=== PATIENT | male | born 1965 | race Caucasian/White ===

== ENCOUNTER 2016-04-19 09:40 | Emergency (ER) | payer SELFPAY | END 2016-04-19 12:00 | disposition home or self-care (01) | LOC: FER 09:40 | DX: S39.012A Strain of muscle, fascia and tendon of lower back, initial encounter (principal); W17.89XA Other fall from one level to another, initial encounter; Y92.69 Other specified industrial and construction area as the place of occurrence of the external cause; Y99.0 Civilian activity done for income or pay | CPT/HCPCS: 72100; J1100 ==

== ENCOUNTER 2016-05-10 11:48 | Emergency (ER) | payer OTHER | END 2016-05-10 12:49 | disposition home or self-care (01) | LOC: FER 11:48 | DX: M54.41 Lumbago with sciatica, right side (principal); R03.0 Elevated blood-pressure reading, without diagnosis of hypertension; Z87.828 Personal history of other (healed) physical injury and trauma; Z87.891 Personal history of nicotine dependence | CPT/HCPCS: J1100; J1885 ==

== ENCOUNTER 2020-03-29 19:58 | Inpatient (IN) | payer OTHER ==
[~2020-03-29 19:58] MED LIST: CYCLOBENZAPRINE10 MG PO; LIPITOR20 MG PO; METFORMIN HCL500 MG PO; PRINIVIL10 MG PO; VOLTAREN **OUT50 MG PO
[2020-03-29 20:58] LABS: BASOPHIL 0.7 % (0-2); EOSINOPHIL 3.3 % (0-5); HCT 43.9 % (42.0-52.0); MCH 29.2 pg (25.0-31.0); MCHC 31.9 g/dL (32.0-36.0); MCV 91.6 fL (78.0-100.0); MONOCYTE 9.7 % (0-12); MPV 9.6 fL (6.0-9.5); NEUTROPHIL 69.9 % (41-80); NRBC 0; PLT 281 K/uL (150-400); RBC 4.79 M/uL (4.70-6.00); WBC 9.5 K/uL (4.0-10.5)
[2020-03-29 21:05] LABS: INR 1.34 (0.9-1.2); PROTHROMBIN TIME 15.7 SECONDS (11.4-13.6); PTT 31.4 SECONDS (22.2-34.7)
[2020-03-29 21:18] LABS: ALBUMIN 3.2 g/dL (3.4-5.0); BILIRUBIN - TOTAL 1.1 mg/dL (0.2-1.0); CREATININE 1.12 mg/dL (0.67-1.17); GLOBULIN (CALCULATION) 3.5 g/dL; POTASSIUM 4.8 mmol/L (3.5-5.1); TOTAL PROTEIN 6.7 g/dL (6.4-8.2)
[2020-03-30] MEDS ORDERED: TOPROL XL 25MG25 MG PO (04:31)
[2020-03-30] MEDS ORDERED: ASPIRIN325 M1 PO (04:32)
[2020-03-30] MEDS ORDERED: VALSARTAN160 MG PO (04:34)
[2020-03-30] MEDS ORDERED: DEMADEX20 MG PO (04:38)
[2020-03-30] MEDS ORDERED: PROTONIX 40MG T40 MG PO (04:40)
[2020-03-30 08:13] LABS: BUN/CREAT RATIO (CALC) 22.8 RATIO; CREATININE 1.14 mg/dL (0.67-1.17); MAGNESIUM 1.7 mg/dL (1.8-2.4); POTASSIUM 4.4 mmol/L (3.5-5.1)
[2020-03-31 06:26] LABS: BASOPHIL 0.8 % (0-2); EOSINOPHIL 3.3 % (0-5); HGB 13.6 g/dl (13.2-18.0); MCH 29.2 pg (25.0-31.0); MCHC 32.4 g/dL (32.0-36.0); MCV 90.1 fL (78.0-100.0); MONOCYTE 9.3 % (0-12); MPV 9.6 fL (6.0-9.5); NEUTROPHIL 73.3 % (41-80); NRBC 0; PLT 252 K/uL (150-400); RBC 4.66 M/uL (4.70-6.00); WBC 8.7 K/uL (4.0-10.5)
[2020-03-31 06:51] LABS: CREATININE 1.29 mg/dL (0.67-1.17); MAGNESIUM 1.5 mg/dL (1.8-2.4); POTASSIUM 4.3 mmol/L (3.5-5.1)
[2020-03-31 17:43] LABS: BILIRUBIN 1+ mg/dL (NEGATIVE); BLOOD NEGATIVE Ery/uL (NEGATIVE); CLARITY CLEAR (CLEAR); COLOR YELLOW (YELLOW); GLUCOSE (U) NORMAL (NORMAL); LEUKOCYTES NEGATIVE Leu/uL (NEGATIVE); NITRITE NEGATIVE (NEGATIVE); PROTEIN TRACE (LOW) mg/dL (NEGATIVE); SPECIFIC GRAVITY 1.025 (1.001-1.030)
[2020-03-31 17:48] LABS: SQUAMOUS EPITHELIAL CELLS RARE; URINARY RBC RARE
[2020-03-31] MEDS ORDERED: VALSARTAN80 MG PO (18:16)
[2020-03-31] MEDS ORDERED: TOPROL XL 25MG25 MG PO (18:16)
[2020-03-31] MEDS ORDERED: METFORMIN HCL500 MG PO (18:16)
[2020-03-31] MEDS ORDERED: DEMADEX20 MG PO (18:16)
[2020-03-31] MEDS ORDERED: PROTONIX 40MG T40 MG PO (18:16)
[2020-03-31] MEDS ORDERED: LIPITOR20 MG PO (18:16)
[2020-03-31] MEDS ORDERED: POTASSIUM CHLO10 ME2 PO (18:16)
== END 2020-03-31 19:01 | disposition home or self-care (01) | DRG 282 ==
LOC: FER 19:58 → FTCU 03-30 02:51
PROVIDERS: Allergy & Immunology; Emergency Medicine Emergency Medical Services; ADMIT Internal Medicine
DX: I11.0 Hypertensive heart disease with heart failure (principal); I21.A1 Myocardial infarction type 2; F41.9 Anxiety disorder, unspecified; M19.90 Unspecified osteoarthritis, unspecified site; E11.9 Type 2 diabetes mellitus without complications; G47.33 Obstructive sleep apnea (adult) (pediatric); E78.5 Hyperlipidemia, unspecified; Z20.822 Contact with and (suspected) exposure to COVID-19; G89.29 Other chronic pain; I42.8 Other cardiomyopathies; M54.9 Dorsalgia, unspecified; Z87.891 Personal history of nicotine dependence; I50.33 Acute on chronic diastolic (congestive) heart failure; Z91.14 Patient's other noncompliance with medication regimen
CPT/HCPCS: 36415; 71045; 80048; 80053; 81001; 82962; 83735; 83880; 84145; 84484; 85025; 85610; 85730; 93005; J1650; J1940; J3475; U0002

== ENCOUNTER 2021-03-30 14:47 | Emergency (ER) | payer OTHER ==
[~2021-03-30 14:47] MED LIST changes: +ASPIRIN325 M1 PO; +AUGMENTIN 875-1 EACH PO; +DEMADEX20 MG PO; +MUPIROCIN 2%22 GM TOP; +NORCO 5-325 TA1 EACH PO; +POTASSIUM CHLO10 ME2 PO; +PROTONIX 40MG T40 MG PO; +TOPROL XL 25MG25 MG PO; +VALSARTAN160 MG PO; +VALSARTAN80 MG PO; +VIBRAMYCIN100 MG PO
[2021-03-30 15:25] LABS: BASOPHIL 0.8 % (0-2); EOSINOPHIL 0.6 % (0-5); HCT 45.9 % (42.0-52.0); HGB 14.7 g/dl (13.2-18.0); MCH 25.4 pg (25.0-31.0); MCV 79.4 fL (78.0-100.0); MONOCYTE 9.3 % (0-12); MPV 10.3 fL (6.0-9.5); NRBC 0; PLT 278 K/uL (150-400); RBC 5.78 M/uL (4.70-6.00); RDW 20.7 % (11.5-14.0); WBC 9.5 K/uL (4.0-10.5)
[2021-03-30 15:37] LABS: INR 1.46 (0.9-1.2); PTT 32.1 SECONDS (24.4-34.7)
[2021-03-30 15:53] LABS: ALBUMIN 3.3 g/dL (3.4-5.0); BILIRUBIN - TOTAL 1.9 mg/dL (0.2-1.0); BUN/CREAT RATIO (CALC) 19.2 RATIO; CREATININE 1.2 mg/dL (0.67-1.17); FT4 (FREE T4) 1.1 ng/dL (0.76-1.46); GLOBULIN (CALCULATION) 4.6 g/dL; MAGNESIUM 1.5 mg/dL (1.8-2.4); POTASSIUM 3.4 mmol/L (3.5-5.1); TOTAL PROTEIN 7.9 g/dL (6.4-8.2)
[2021-03-30 15:56] LABS: LACTIC ACID 1.9 mmol/L (0.4-1.9)
[2021-03-30 17:49] LABS: BILIRUBIN NEGATIVE (NEGATIVE); BLOOD NEGATIVE Ery/uL (NEGATIVE); CLARITY CLEAR (CLEAR); COLOR YELLOW (YELLOW); GLUCOSE (U) NORMAL (NORMAL); LEUKOCYTES NEGATIVE Leu/uL (NEGATIVE); NITRITE NEGATIVE (NEGATIVE); PROTEIN TRACE (LOW) mg/dL (NEGATIVE); pH 6.5 (5.0-9.0)
[2021-03-30 17:55] LABS: AMPHETAMINES NEGATIVE (NEGATIVE); BARBITURATES NEGATIVE (NEGATIVE); ECSTASY (MDMA) NEGATIVE (NEGATIVE); MARIJUANA (THC) NEGATIVE (NEGATIVE); METHADONE NEGATIVE (NEGATIVE); OPIATES NEGATIVE (NEGATIVE); OXYCODONE NEGATIVE (NEGATIVE)
[2021-03-31 04:27] LABS: BASOPHIL 1.1 % (0-2); EOSINOPHIL 1.6 % (0-5); HCT 45.3 % (42.0-52.0); HGB 14.5 g/dl (13.2-18.0); LYMPHOCYTE 20.2 % (15-48); MCH 25.3 pg (25.0-31.0); MCV 79.2 fL (78.0-100.0); MONOCYTE 9.9 % (0-12); MPV 10.3 fL (6.0-9.5); NEUTROPHIL 66.9 % (41-80); NRBC 0; PLT 255 K/uL (150-400); RBC 5.72 M/uL (4.70-6.00); RDW 20.8 % (11.5-14.0); WBC 7.1 K/uL (4.0-10.5)
[2021-03-31 04:38] LABS: BUN/CREAT RATIO (CALC) 18.4 RATIO; CREATININE 1.36 mg/dL (0.67-1.17); POTASSIUM 4.1 mmol/L (3.5-5.1)
== END 2021-03-31 10:00 | disposition other institution (70) ==
LOC: FER 14:47
PROVIDERS: Emergency Medicine; Internal Medicine
DX: I11.0 Hypertensive heart disease with heart failure (principal); I50.9 Heart failure, unspecified; R07.89 Other chest pain; R00.2 Palpitations; E11.9 Type 2 diabetes mellitus without complications; Z95.0 Presence of cardiac pacemaker; Z91.19 Patient's noncompliance with other medical treatment and regimen; Z91.041 Radiographic dye allergy status; Z20.822 Contact with and (suspected) exposure to COVID-19
CPT/HCPCS: 36415; 71045; 80048; 80053; 80305; 81003; 82550; 83605; 83615; 83735; 83880; 84439; 84443; 84484; 85025; 85610; 85730; 93005; J1940; J3475; U0002

== ENCOUNTER 2021-04-19 08:42 | Emergency (ER) | payer OTHER ==
[2021-04-19 10:27] LABS: BASOPHIL 0.2 % (0-2); EOSINOPHIL 0 % (0-5); HCT 44.9 % (42.0-52.0); HGB 14.2 g/dl (13.2-18.0); LYMPHOCYTE 3.5 % (15-48); MCH 25.1 pg (25.0-31.0); MCHC 31.6 g/dL (32.0-36.0); MCV 79.5 fL (78.0-100.0); MONOCYTE 8.8 % (0-12); MPV 10.1 fL (6.0-9.5); NEUTROPHIL 86.2 % (41-80); NRBC 0.2; PLT 292 K/uL (150-400); RBC 5.65 M/uL (4.70-6.00); RDW 20.7 % (11.5-14.0); WBC 16.4 K/uL (4.0-10.5)
[2021-04-19 10:35] LABS: INR 2.64 (0.9-1.2); PROTHROMBIN TIME 27.2 SECONDS (11.8-13.4); PTT 37.4 SECONDS (24.4-34.7)
[2021-04-19 10:43] LABS: ALBUMIN 3.6 g/dL (3.4-5.0); BUN/CREAT RATIO (CALC) 28.7 RATIO; CREATININE 1.57 mg/dL (0.67-1.17); GLOBULIN (CALCULATION) 4.3 g/dL; MAGNESIUM 1.4 mg/dL (1.8-2.4); POTASSIUM 4.3 mmol/L (3.5-5.1); TOTAL PROTEIN 7.9 g/dL (6.4-8.2)
[2021-04-19 12:13] LABS: BILIRUBIN 1+ mg/dL (NEGATIVE); BLOOD NEGATIVE Ery/uL (NEGATIVE); CLARITY CLEAR (CLEAR); COLOR YELLOW (YELLOW); GLUCOSE (U) NORMAL (NORMAL); LEUKOCYTES NEGATIVE Leu/uL (NEGATIVE); NITRITE NEGATIVE (NEGATIVE); PROTEIN NEGATIVE (NEGATIVE); SPECIFIC GRAVITY 1.025 (1.001-1.030); pH 5.5 (5.0-9.0)
[2021-04-19] MEDS ORDERED: NEURONTIN300 MG PO (16:09)
[2021-04-19] MEDS ORDERED: LASIX40 MG PO (16:10)
[2021-04-19] MEDS ORDERED: METOPROLOL SUCC25 MG PO (16:10)
[2021-04-19] MEDS ORDERED: ATORVASTATIN CA40 MG PO (16:11)
[2021-04-19] MEDS ORDERED: VAZALORE81 MG PO (16:14)
[2021-04-19] MEDS ORDERED: METFORMIN HCL500 MG PO (16:15)
[2021-04-19] MEDS ORDERED: PROTONIX40 M1 PO (16:16)
[2021-04-19 18:11] LABS: BUN/CREAT RATIO (CALC) 27.9 RATIO; CREATININE 1.83 mg/dL (0.67-1.17); POTASSIUM 4.7 mmol/L (3.5-5.1)
[2021-04-19 18:31] LABS: AMPHETAMINES NEGATIVE (NEGATIVE); BARBITURATES NEGATIVE (NEGATIVE); ECSTASY (MDMA) NEGATIVE (NEGATIVE); MARIJUANA (THC) NEGATIVE (NEGATIVE); METHADONE NEGATIVE (NEGATIVE); OPIATES NEGATIVE (NEGATIVE); OXYCODONE NEGATIVE (NEGATIVE)
[2021-04-21 08:11] LABS: HBSAG SCREEN Negative (Negative); HEP A AB, IGM Negative (Negative); HEP B CORE AB, IGM Negative (Negative); HEP C VIRUS AB <0.1 (0.0-0.9)
== END 2021-04-19 21:25 | disposition other institution (70) ==
LOC: FER 08:42
PROVIDERS: Emergency Medicine
DX: A41.9 Sepsis, unspecified organism (principal); R65.20 Severe sepsis without septic shock; K76.7 Hepatorenal syndrome; I11.0 Hypertensive heart disease with heart failure; I50.20 Unspecified systolic (congestive) heart failure; R74.8 Abnormal levels of other serum enzymes; E11.9 Type 2 diabetes mellitus without complications; E66.9 Obesity, unspecified; J44.9 Chronic obstructive pulmonary disease, unspecified; Z95.5 Presence of coronary angioplasty implant and graft; Z87.891 Personal history of nicotine dependence; Z20.822 Contact with and (suspected) exposure to COVID-19
CPT/HCPCS: 36415; 36600; 71045; 76705; 80048; 80053; 80074; 80305; 81003; 82140; 82803; 83605; 83735; 83880; 84145; 84484; 85025; 85610; 85730; 87040; 93005; G0480; J2543; J7040; J7050; U0002

== ENCOUNTER 2021-06-21 09:27 | Emergency (ER) | payer OTHER ==
[~2021-06-21 09:27] MED LIST changes: +ATORVASTATIN CA40 MG PO; +LASIX40 MG PO; +METOPROLOL SUCC25 MG PO; +NEURONTIN300 MG PO; +PROTONIX40 M1 PO; +VAZALORE81 MG PO
[2021-06-21 11:33] LABS: BASOPHIL 0.3 % (0-2); EOSINOPHIL 0 % (0-5); HCT 37.7 % (42.0-52.0); HGB 12.4 g/dl (13.2-18.0); LYMPHOCYTE 3.1 % (15-48); MCH 28.2 pg (25.0-31.0); MCHC 32.9 g/dL (32.0-36.0); MCV 85.9 fL (78.0-100.0); MONOCYTE 6.5 % (0-12); MPV 10.1 fL (6.0-9.5); NEUTROPHIL 89.4 % (41-80); NRBC 0; PLT 203 K/uL (150-400); RBC 4.39 M/uL (4.70-6.00); RDW 20.8 % (11.5-14.0)
[2021-06-21 11:56] LABS: ALBUMIN 2.6 g/dL (3.4-5.0); BILIRUBIN - TOTAL 1.8 mg/dL (0.2-1.0); BUN/CREAT RATIO (CALC) 17.9 RATIO; C-REACTIVE PROTEIN 9.6 mg/dL (<=0.90); CREATININE 1.9 mg/dL (0.67-1.17); GLOBULIN (CALCULATION) 4.6 g/dL; MAGNESIUM 1.2 mg/dL (1.8-2.4); POTASSIUM 3.8 mmol/L (3.5-5.1); TOTAL PROTEIN 7.2 g/dL (6.4-8.2)
[2021-06-21 12:14] LABS: LACTIC ACID 1.1 mmol/L (0.4-1.9)
[2021-06-21 15:04] LABS: BILIRUBIN 1+ mg/dL (NEGATIVE); BLOOD NEGATIVE Ery/uL (NEGATIVE); CLARITY CLEAR (CLEAR); COLOR YELLOW (YELLOW); GLUCOSE (U) NORMAL (NORMAL); LEUKOCYTES NEGATIVE Leu/uL (NEGATIVE); NITRITE NEGATIVE (NEGATIVE); PROTEIN NEGATIVE (NEGATIVE)
== END 2021-06-21 18:11 | disposition other institution (70) ==
LOC: FER 09:27
PROVIDERS: Emergency Medicine
DX: I11.0 Hypertensive heart disease with heart failure (principal); I50.9 Heart failure, unspecified; Z28.310 Unvaccinated for COVID-19; Z87.891 Personal history of nicotine dependence; Z91.041 Radiographic dye allergy status; Z79.899 Other long term (current) drug therapy
CPT/HCPCS: 36415; 71250; 72128; 72131; 73030; 80053; 81003; 83605; 83690; 83735; 83880; 84145; 84484; 85025; 86140; 87040; 93005; J1170; J2405

== ENCOUNTER 2021-07-20 14:57 | Emergency (ER) | payer OTHER ==
[2021-07-20 16:21] LABS: BASOPHIL 0.3 % (0-2); EOSINOPHIL 0.7 % (0-5); HCT 40.9 % (42.0-52.0); HGB 13.3 g/dl (13.2-18.0); LYMPHOCYTE 4.5 % (15-48); MCHC 32.5 g/dL (32.0-36.0); MCV 86.1 fL (78.0-100.0); MONOCYTE 7.6 % (0-12); MPV 10.1 fL (6.0-9.5); NEUTROPHIL 86.1 % (41-80); NRBC 0; PLT 197 K/uL (150-400); RBC 4.75 M/uL (4.70-6.00); RDW 18.5 % (11.5-14.0)
[2021-07-20 16:40] LABS: LACTIC ACID 1.7 mmol/L (0.4-1.9)
[2021-07-20 16:45] LABS: ALBUMIN 2.7 g/dL (3.4-5.0); BILIRUBIN - TOTAL 0.7 mg/dL (0.2-1.0); BUN/CREAT RATIO (CALC) 22.9 RATIO; CREATININE 1.31 mg/dL (0.67-1.17); GLOBULIN (CALCULATION) 4.9 g/dL; TOTAL PROTEIN 7.6 g/dL (6.4-8.2)
[2021-07-20 17:58] LABS: BILIRUBIN NEGATIVE (NEGATIVE); BLOOD 3+ Ery/uL (NEGATIVE); CLARITY CLEAR (CLEAR); COLOR YELLOW (YELLOW); GLUCOSE (U) TRACE mg/dL (NORMAL); LEUKOCYTES TRACE Leu/uL (NEGATIVE); NITRITE POSITIVE (NEGATIVE); PROTEIN TRACE (LOW) mg/dL (NEGATIVE); SPECIFIC GRAVITY 1.015 (1.001-1.030)
[2021-07-20 18:06] LABS: BACTERIA 4+; SQUAMOUS EPITHELIAL CELLS RARE
[2021-07-20 22:32] LABS: MAGNESIUM 1.9 mg/dL (1.8-2.4); PHOSPHORUS 3.6 mg/dL (2.6-4.7)
[2021-07-21 01:35] LABS: HCT 39.8 % (42.0-52.0); MCH 28.1 pg (25.0-31.0); MCHC 32.7 g/dL (32.0-36.0); RBC 4.63 M/uL (4.70-6.00); RDW 18.6 % (11.5-14.0); WBC 23.4 K/uL (4.0-10.5)
[2021-07-21 01:52] LABS: BUN/CREAT RATIO (CALC) 19.7 RATIO; CREATININE 1.22 mg/dL (0.67-1.17)
== END 2021-07-21 04:42 | disposition other institution (70) ==
LOC: FER 14:57
PROVIDERS: Emergency Medicine
DX: T80.211A Bloodstream infection due to central venous catheter, initial encounter (principal); A41.9 Sepsis, unspecified organism; I13.0 Hypertensive heart and chronic kidney disease with heart failure and stage 1 through stage 4 chronic kidney disease, or unspecified chronic kidney disease; E11.22 Type 2 diabetes mellitus with diabetic chronic kidney disease; N18.9 Chronic kidney disease, unspecified; I50.9 Heart failure, unspecified; J44.9 Chronic obstructive pulmonary disease, unspecified; Z20.822 Contact with and (suspected) exposure to COVID-19; Z28.310 Unvaccinated for COVID-19; Z91.041 Radiographic dye allergy status; Y84.0 Cardiac catheterization as the cause of abnormal reaction of the patient, or of later complication, without mention of misadventure at the time of the procedure
CPT/HCPCS: 36415; 36600; 70450; 71250; 71275; 80048; 80053; 81001; 82150; 82803; 83605; 83735; 84100; 84145; 84484; 85025; 87040; 87076; 87077; 87088; 87186; 93005; 96361; 96365; 96366; 96367; 96375; 96376; J1170; J2405; J2543; J3010; J3370; J7030; J7050; U0002